=== PATIENT | male | born 1965 | race Caucasian/White ===

== ENCOUNTER 2017-05-14 19:42 | Emergency (ER) | payer OTHER ==
[2017-05-14 20:05] VITALS: BP 123/85
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
[2017-05-14] MEDS ORDERED: LIDOCAINE 1% 50 ML MDV SUBQ STA (21:13)
[2017-05-14] MEDS ORDERED: LIDOCAINE 1% 2 ML VIAL ONE (21:15)
== END 2017-05-14 22:17 | disposition home or self-care (01) ==
LOC: ED 19:42
DX: S01.81XA Laceration without foreign body of other part of head, initial encounter (principal); V94.0XXA Hitting object or bottom of body of water due to fall from watercraft, initial encounter; Y93.18 Activity, surfing, windsurfing and boogie boarding; Y92.828 Other wilderness area as the place of occurrence of the external cause
CPT/HCPCS: 12011; 99282; 99283

== ENCOUNTER 2017-09-20 10:52 | Outpatient (CLI) | payer OTHER ==
[2017-09-20 17:50] VITALS: BP 110/82
--- NOTE | 2017-09-21 04:07 | CARDIAC PROCEDURE NOTE ---
DATE OF SERVICE: 09/20/2017 00:00:00 ORDERING PHYSICIAN: Dr. Ashley Shen. PROCEDURE: Cardiac treadmill stress test. PROCEDURE REASON: Increased risk of cardiac disease due to occupation. CARDIAC RISK FACTORS: No hypertension, hyperlipidemia, diabetes, smoking history , or family history. 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 INITIAL RESTING VITAL SIGNS: Blood pressure 110/82, pulse 72, height 69 inches, weight 155 pounds. PROCEDURE AND FINDINGS: The patient's identity and date verified. Consent signed. The patient performed treadmill exercise using a Moustapha protocol, completing 14 minutes 40 seconds and completing an estimated workload of 15.1 METS. Maximal blood pressure was 170/70 with a heart rate of 180 beats per minute or 106% of maximum predicted heart rate for age. The blood pressure response to exercise was within normal limits. The patient stopped because greater than 100% of predicted heart rate was achieved. He stated that he could have exercised longer. The resting ECG demonstrated normal sinus rhythm with repolarization abnormality. Maximum ST segment depression with exercise was less than 0.5 mm and upsloping. There was no ectopy. FINAL IMPRESSION 1. Test suboptimal due to excess artifact during the exercise portion. We would be happy to retest without charge if requested. 2. No ST depression >0.5 mm seen. 2. Negative stress test clinically for angina. 3. No ectopy nor arrhythmia. 4. [place] [employer] functional class 1. JOB #: [id number] EXT JOB #:[id number] MTDD
--- NOTE | 2017-09-21 16:40 | XRAY Report ---
CARDIOVASCULAR TREADMILL TEST There was no imaging performed for this exam. Procedure notes and results available in the EMR. SHU
== END 2017-09-20 10:53 | disposition home or self-care (01) ==
LOC: DI 10:52
PROVIDERS: ATTEND Family Medicine
DX: Z13.6 Encounter for screening for cardiovascular disorders (principal); Z78.9 Other specified health status
CPT/HCPCS: 93017

== ENCOUNTER 2019-11-18 06:25 | Day surgery (SDC) | payer OTHER ==
[2019-11-18] MEDS ORDERED: MIDAZOLAM 2 MG/2 ML VIAL IVP ONE (06:26)
[2019-11-18] MEDS ORDERED: fentaNYL 250 MCG/5 ML VIAL IVP ONE (06:26)
[2019-11-18] MEDS ORDERED: LACTATED RINGERS 1,000 ML IV ONE (06:37)
[2019-11-18 08:38] VITALS: BP 110/63
== END 2019-11-18 06:26 | disposition home or self-care (01) ==
LOC: SDS 06:25
PROVIDERS: ATTEND Internal Medicine Gastroenterology
PROC: 0DBL8ZZ Excision of Transverse Colon, Via Natural or Artificial Opening Endoscopic (ICD-10-PCS; principal; 2019-11-18 07:30)
DX: Z12.11 Encounter for screening for malignant neoplasm of colon (principal); K63.5 Polyp of colon; Z80.0 Family history of malignant neoplasm of digestive organs; Z57.39 Occupational exposure to other air contaminants
CPT/HCPCS: 45380; J3010; J7120

== ENCOUNTER 2022-04-10 06:00 | Outpatient (CLI) | payer OTHER ==
--- NOTE | 2022-04-10 12:28 | XRAY Report ---
PROCEDURE: Shoulder 3 View LT INDICATIONS: SHOULDER PAIN TECHNIQUE: 3 views of the shoulder were acquired. COMPARISON: None. FINDINGS: Bones: No fractures or dislocations. No suspicious bony lesions. Visualized ribs appear intact. M ild acromioclavicular degenerative narrowing. Soft tissues: No suspicious soft tissue calcifications. IMPRESSION: No visualized acute fracture or dislocation. However, occult injury cannot be excluded. Recommend short interval imaging follow-up in 7-10 days as clinically indicated for additional evalua tion. Reviewed by: Reanna Olmos MD on 04/10/2022 12:27 PM PDT Approved by: Reanna Olmos MD on 04/10/2022 12:27 PM PDT Station ID: [id number]
== END 2022-04-10 23:59 | disposition home or self-care (01) ==
LOC: DI.WOS 06:00
PROVIDERS: ATTEND Physician Assistant
DX: M25.511 Pain in right shoulder (principal)

== ENCOUNTER 2022-09-17 08:59 | Outpatient (CLI) | payer OTHER ==
--- NOTE | 2022-09-17 09:30 | XRAY Report ---
PROCEDURE: Foot 3 View LT INDICATIONS: LEFT FOOT PAIN TECHNIQUE: 3 views of the foot were acquired. COMPARISON: None FINDINGS: Bones: No fractures or dislocations. Mild degenerative change. Subtle periarticular lucency at the f irst digit proximal phalanx tibial aspect. No tophus identified. No suspicious bony lesions. Soft tissues: No tibiotalar joint effusion. Achilles tendon appears normal. IMPRESSION: Subtle periarticular lucency at the first digit interphalangeal joint. This is nonspecific but could be seen in the setting of gout. Mild degenerative changes. Reviewed by: George Donald MD on 09/17/2022 8:28 AM ELY Approved by: George Donald MD on 09/17/2022 8:28 AM ELY Station ID: [id number]
== END 2022-09-17 09:00 | disposition home or self-care (01) ==
LOC: DI 08:59
PROVIDERS: ATTEND Family Medicine
DX: M19.072 Primary osteoarthritis, left ankle and foot (principal)

== ENCOUNTER 2022-12-14 08:21 | Outpatient (CLI) | payer OTHER ==
--- NOTE | 2022-12-14 12:39 | XRAY Report ---
PROCEDURE: Chest 2 View X-Ray INDICATIONS: OCCUPATIONAL SCREENING FOR MESOTHELIOMA, AND LUNG TECHNIQUE: 2 views of the chest were acquired. COMPARISON: 05/25/2016 FINDINGS: Surgical changes and devices: None. Lungs and pleura: No pleural effusions or pneumothorax. Lungs are clear. Mediastinum: Mediastinal contours are normal. Heart size is normal. Bones and chest wall: No suspicious bony abnormalities. Soft tissues appear unremarkable. IMPRESSION: No acute cardiopulmonary process demonstrated radiographically. Reviewed by: Robson Lucio MD on 12/14/2022 12:37 PM PST Approved by: Robson Lucio MD on 12/14/2022 12:37 PM PST Station ID: [id number]
== END 2022-12-14 08:22 | disposition home or self-care (01) ==
LOC: DI 08:21
PROVIDERS: ATTEND Family Medicine
DX: Z02.89 Encounter for other administrative examinations (principal); Z12.2 Encounter for screening for malignant neoplasm of respiratory organs

== ENCOUNTER 2023-10-22 16:00 | Emergency (ER) | payer OTHER ==
[2023-10-22 16:14] VITALS: BP 139/95; O2SAT 96
[2023-10-22] MEDS ORDERED: IBUPROFEN 800 MG TABLET PO STA (16:23)
[2023-10-22] MEDS ORDERED: CYCLOBENZAPRINE 10 MG TABLET PO STA (16:23)
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
--- NOTE | 2023-10-22 18:06 | CT Report ---
PROCEDURE: CERVICAL SPINE WO INDICATIONS: neck inj TECHNIQUE: Noncontrast 3 mm thick sections acquired from the skull base to the T4 level. Sagittal and coronal r eformats were then constructed. For radiation dose reduction, the following was used: automated exp osure control, adjustment of mA and/or kV according to patient size. COMPARISON: None. FINDINGS: Image quality: Excellent. Bones: No fractures or dislocations. Degenerative endplate changes and loss of disc height througho ut cervical spine is seen. Dorsal disc osteophyte complex formation at C3-4 through C5-6 levels are s een causing [id number] central canal stenosis, no significant neural foraminal narrowing. Visua lized superior ribs are intact. Soft tissues: Prevertebral soft tissues are normal in thickness. No paravertebral hematomas. No ap ical pneumothoraces. IMPRESSION: 1. No acute cervical spine fracture or dislocation. 2. Degenerative disc disease throughout cervical spine as above. Reviewed by: David Cabrera MD on 10/22/2023 6:05 PM PST Approved by: David Cabrera MD on 10/22/2023 6:05 PM PST Station ID: [id number]
--- NOTE | 2023-10-22 18:11 | ED Physician Documentation ---
ED Addendum - Addendum Addendum: 10/22/23 18:10 Patient was signed out to me by Dr. Nogueira awaiting CT scan results. The CT does not show any acute abnormalities. We will place him on muscle relaxants for home. Have him follow-up closely with his PCP for further care. Patient counseled regarding signs and symptoms for which I believe and urgent re- evaluation would be necessary. Patient with good understanding of and agreement to plan and is comfortable going home at this time This document was made in part using voice recognition software. While efforts are made to proofread this document, sound alike and grammatical errors may occur. Departure - Departure Disposition: Home, Self Care Clinical Impression: Peripheral neuropathy Qualifiers: Peripheral neuropathy type: mononeuropathy, unspecified Qualified Code(s): G58.9 - Mononeuropathy, unspecified Neck injury Qualifiers: Encounter type: initial encounter Qualified Code(s): S19.9XXA - Unspecified injury of neck, initial encounter Condition: Good Instructions: ED Sprain Strain Neck Follow-Up: Cyndie Thorne MD [Primary Care Provider] - Within 1 week Prescriptions: Cyclobenzaprine [Flexeril] 10 mg PO TID PRN #20 tablet PRN Reason: Spasms Comments: CAT scan did not show anything concerning today. As discussed, given the focality of the weakness this would not represent a spinal cord injury but more likely a peripheral nerve injury. Thankfully I do not think it is the long thoracic nerve which does not heal well, and also, thankfully, you are already improving. Unless you rapidly and completely improve I would recommend following with your doctor at [facility] with consideration for neurology referral for consideration for EMG testing. Return for new or worsening symptoms. I sent a prescription for muscle relaxers to the [facility] pharmacy at the corner [address] in [facility]. Forms: PCP List
== END 2023-10-22 18:21 | disposition home or self-care (01) ==
LOC: ED 16:00
DX: S19.9XXA Unspecified injury of neck, initial encounter (principal); W22.8XXA Striking against or struck by other objects, initial encounter; Y93.51 Activity, roller skating (inline) and skateboarding; Y92.838 Other recreation area as the place of occurrence of the external cause; G58.9 Mononeuropathy, unspecified; Z79.899 Other long term (current) drug therapy
CPT/HCPCS: 72125; 99283; 99284; A9270

== ENCOUNTER 2023-11-20 12:34 | Outpatient (CLI) | payer OTHER ==
--- NOTE | 2023-11-20 16:14 | MRI Report ---
PROCEDURE: BRACHIAL PLEXUS WO INDICATIONS: INJURY TO R BRACHIAL PLEXUS TECHNIQUE: Noncontrast axial, coronal, and sagittal T1 spin echo and STIR through the affected brachial plexus r egion. Additional axial T1 spin echo and coronal T2 fast spin echo acquired through both brachial pl exuses with a large [id number]. COMPARISON: None. FINDINGS: Image quality: Excellent. Brachial plexus: Right-sided cervical nerve roots and brachial plexus demonstrate normal intrasubsta nce signal without extrinsic compression. No soft tissue mass is seen. Multilevel degenerative disc d isease, uncovertebral joint hypertrophy, and facet hypertrophy are seen in the included cervical spin e with associated neural foraminal and spinal canal narrowing, which are not optimally evaluated on t his exam. Soft tissues: No supraclavicular adenopathy by size criteria. Superior pleural surfaces are normal in thickness. Jugular veins and carotid arteries appear normal in size. Mild increased signal withi n the supraspinatus and infraspinatus muscles, which may be related to low-grade muscle strains versu s mild or early denervation changes. No mass is seen along the course of the suprascapular nerve. Bones: Marrow demonstrates normal overall signal. Moderate acromioclavicular osteoarthrosis. IMPRESSION: 1.Normal appearance of the right cervical nerve roots and brachial plexus, which are symmetric when c ompared to the left side. 2.Multilevel cervical spondylosis with varying degrees of neural foraminal stenosis and spinal canal narrowing. Consider dedicated cervical spine MRI for further evaluation. 3.Mild edema within the right supraspinatus and infraspinatus muscles may be secondary to a low-grade strains are mild/early denervation changes. Reviewed by: Colin Fraser MD on 11/20/2023 4:13 PM PST Approved by: Colin Fraser MD on 11/20/2023 4:13 PM PST Station ID: [id number]
== END 2023-11-20 12:35 | disposition home or self-care (01) ==
LOC: DI 12:34
PROVIDERS: ATTEND Physical Medicine & Rehabilitation
DX: S14.3XXA Injury of brachial plexus, initial encounter (principal); M47.812 Spondylosis without myelopathy or radiculopathy, cervical region; M48.02 Spinal stenosis, cervical region